=== PATIENT | female | born 1995 | race Asian ===

== ENCOUNTER 2017-01-02 10:09 | Emergency (ER) | payer SELFPAY ==
[2017-01-02 10:10] VITALS: BP 131/65; PULSE 74; RESP 15; TEMP 99.5; O2SAT 95
--- NOTE | 2017-01-02 10:23 | PD ---
HPI Chief Complaint: Cold / Flu Symptoms Time Seen by Provider: 10:22 Travel History International Travel<30 days: Yes Contact w/Intl Traveler<30days: Yes Name of Country Traveled to: [facility] Traveled to known affect area: Yes History of Present Illness HPI 21 YO female presents to the ED for evaluation of 1 day history of fever, headache and sore throat. Headache described as occipital, rated 7/10, accompanied by mild dizziness. She endorses tender lymphadenopathy. Also complains of one week history of streaky blood in the stool. She denies malaise , vision changes, ear pain, sinus congestion, chest pain, cough, shortness of breath, abdominal pain, nausea, vomiting, diarrhea, dysuria, vaginal discharge, back pain, arthralgias. She did not receive this years flu vaccine. The patient lives in [facility] [place], is here visiting a friend for the last 2 weeks. She states that she's been eating a diet similar to that at home. PFSH Past Medical History Medical History: Denies Significant Hx Social History Alcohol Use: No Tobacco Use: No Substance Use: No Allergies-Medications (Allergen,Severity, Reaction): Coded Allergies: No Known Allergies (Unverified , 01/02/17) Reported Meds & Prescriptions Reported Meds & Active Scripts Active No Active Prescriptions or Reported Medications Review of Systems Except as stated in HPI: all other systems reviewed are Neg Physical Exam Narrative GENERAL: Well-nourished, well-developed, non toxic appearing female in [facility]. SKIN: Focused skin assessment warm/dry. There are 2 insect bites on the left anterior ankle. No signs of infection. HEAD: Normocephalic. Atraumatic. ENT: pearly lowe tympanic membranes bilaterally. Right tonsil 2+, mildly erythematous. No visible exudate. Airway patent. Uvula midline. Streaky blood noted in the nasal discharge. Streaky blood noted on the strep swab. EYES: No scleral icterus. No injection or drainage. PERRLA. EOMI. NECK: Supple, trachea midline. No JVD. + tender anterior cervical lymphadenopathy. CARDIOVASCULAR: Regular rate and rhythm without murmurs, gallops, or rubs. RESPIRATORY: Breath sounds clear and equal bilaterally. No accessory muscle use. GASTROINTESTINAL: Abdomen soft, non-tender, nondistended.No palpable masses. Active bowel sounds. MUSCULOSKELETAL: No cyanosis, or edema. Ambulatory, moves the extremities spontaneously. NEUROLOGICAL: Awake and alert. Cranial nerves II through XII intact. Motor and sensory grossly within normal limits. 5/5 muscle strength in all muscle groups. Normal speech. BACK: Nontender without obvious deformity. No CVA tenderness. Data Data Last Documented VS Vital Signs Date Time Temp Pulse Resp B/P Pulse Ox O2 Delivery O2 Flow Rate FiO2 01/02/17 14:19 97 15 99 01/02/17 11:16 Room Air 01/02/17 10:10 99.5 131/65 Orders Complete Blood Count With Diff (01/02/17 10:35) Comprehensive Metabolic Panel (01/02/17 10:35) Prothrombin Time / Inr (Pt) (01/02/17 10:35) Act Partial Throm Time (Ptt) (01/02/17 10:35) Urinalysis - C+S If Indicated (01/02/17 10:35) Iv Access Insert/Monitor (01/02/17 10:35) Ecg Monitoring (01/02/17 10:35) Oximetry (01/02/17 10:35) Sodium Chlor 0.9% 1000 Ml Inj (Ns 1000 M (01/02/17 10:35) Sodium Chloride 0.9% Flush (Ns Flush) (01/02/17 10:45) Influenzae A/B Antigen (01/02/17 10:35) Group A Rapid Strep Screen (01/02/17 10:35) Ed Urine Pregnancytest Poc (01/02/17 10:35) Acetaminophen (Tylenol) (01/02/17 10:45) Malaria (01/02/17 10:35) Enteric Path (Stool) (01/02/17 10:45) Stool Ova And Parasite Screen (01/02/17 10:45) Ct Brain W/O Iv Contrast(Rout) (01/02/17 10:57) Type And Screen (01/02/17 10:58) Fibrinogen (01/02/17 10:58) Type In Test Nurse Collected (01/02/17 11:12) Sodium Chlor 0.9% 1000 Ml Inj (Ns 1000 M (01/02/17 11:45) Penicillin G Benzathine Inj (Bicillin L- (01/02/17 12:30) Labs Laboratory Tests Test 01/02/17 01/02/17 01/02/17 10:50 11:00 11:15 Urine Color YELLOW Urine Turbidity HAZY Urine pH 5.5 Urine Specific [place] 1.022 Urine Protein TRACE mg/dL Urine Glucose (UA) NEG mg/dL Urine Ketones 80 mg/dL Urine Occult Blood NEG Urine Nitrite NEG Urine Bilirubin NEG Urine Urobilinogen LESS THAN 2.0 MG/DL Urine Leukocyte Esterase SMALL Urine RBC LESS THAN 1 /hpf Urine WBC 2 /hpf Urine Squamous Epithelial 1 /hpf Cells Urine Mucus MANY /lpf Microscopic Urinalysis Comment CULT NOT INDICATED White Blood Count 22.8 TH/MM3 Red Blood Count 4.52 MIL/MM3 Hemoglobin 13.8 GM/DL Hematocrit 41.2 % Mean Corpuscular Volume 91.1 FL Mean Corpuscular Hemoglobin 30.6 PG Mean Corpuscular Hemoglobin 33.6 % Concent Red Cell Distribution Width 12.0 % Platelet Count 269 TH/MM3 Mean Platelet Volume 7.8 FL Neutrophils (%) (Auto) 88.9 % Lymphocytes (%) (Auto) 3.8 % Monocytes (%) (Auto) 6.7 % Eosinophils (%) (Auto) 0.0 % Basophils (%) (Auto) 0.6 % Neutrophils # (Auto) 20.3 TH/MM3 Lymphocytes # (Auto) 0.9 TH/MM3 Monocytes # (Auto) 1.5 TH/MM3 Eosinophils # (Auto) 0.0 TH/MM3 Basophils # (Auto) 0.1 TH/MM3 CBC Comment DIFF FINAL Differential Comment Prothrombin Time 11.4 SEC Prothromb Time International 1.0 RATIO Ratio Activated Partial 29.2 SEC Thromboplast Time Fibrinogen 366 mg/dL Sodium Level 135 MEQ/L Potassium Level 3.5 MEQ/L Chloride Level 102 MEQ/L Carbon Dioxide Level 23.9 MEQ/L Anion Gap 9 MEQ/L Blood Urea Nitrogen 10 MG/DL Creatinine 0.70 MG/DL Estimat Glomerular Filtration 107 ML/MIN Rate Random Glucose 89 MG/DL Calcium Level 9.0 MG/DL Total Bilirubin 1.0 MG/DL Aspartate Amino Transf 18 U/L (AST/SGOT) Alanine Aminotransferase 15 U/L (ALT/SGPT) Alkaline Phosphatase 49 U/L Total Protein 7.9 GM/DL Albumin 4.1 GM/DL Blood Type O POSITIVE Antibody Screen NEGATIVE Blood Bank Comment [facility] Medical Decision Making Medical Screen Exam Complete: Yes Emergency Medical Condition: Yes Differential Diagnosis Pharyngitis versus strep pharyngitis versus influenza versus malaria versus dengue versus chikungunya versus other hemorrhagic fever versus enteric pathogen versus other Narrative Course 21 YO female presents to the ED for evaluation of 1 day history of fever, headache and sore throat. Headache described as occipital, rated 7/10, accompanied by mild dizziness. She endorses tender cervical lymphadenopathy. Also complains of one week history of streaky blood in the stool. She did not receive this years flu vaccine. The patient lives in [place], visiting a friend x 2 weeks. Endorses diet similar to that at home. Vitals reviewed. Physical exam reveals a well-appearing female in no acute distress. No focal neuro deficits. Right tonsil 1+ without visible exudates. Chest CTA B. Abdomen soft, nontender. Rectal exam guaiac positive. Streaky blood noted in the fluids collected from posterior oropharynx and nasal mucosa. Patient received 2 L normal saline bolus, 650 mg Tylenol by mouth. Headache resolved on recheck. Rapid strep positive. Leukocytosis of 22.8 with a left shift. Patient was administered 1.2 million units of penicillin G. Malarial smear initially negative. Final results pending. Dengue IGM sent out and pending. Stool studies ordered but the patient was unable to provide a stool sample in the ED. I discussed the results of the workup with the patient as well as the pending tests. She was given strict instructions to return should her symptoms worsen. She provided contact information both in the [place] and [facility]. She indicated understanding of the discharge instructions and is agreeable to the care plan. She is stable and discharged home. Contacts: [place] contact, family friend: Hortencia Chakraborty [phone] [place] contact, mother: Lucia Lebron [phone] ( I double checked this number, patient states this number is correct and complete.) [facility] Point of Care Internal Pos. & Neg. Controls: Passed Fecal Specimen Occult Blood: Positive Diagnosis Primary Impression: Strep pharyngitis Additional Impression: GI (gastrointestinal bleed) Qualified Code: K92.2 - Gastrointestinal hemorrhage, unspecified gastrointestinal hemorrhage type Referrals: Primary Care Physician Patient Instructions: General Instructions, Strep Throat (ED) Additional Instructions: Rest, hydrate. Alternating Motrin and Tylenol every 4-6 hours as needed for continued fever and headaches. Replace toothbrush at the end of this illness. Follow-up with the primary care provider this week. Return to the ED for worsening of symptoms or any urgent or emergent medical condition. Scripts No Active Prescriptions or Reported Meds Disposition: 01 DISCHARGE HOME Condition: Stable Kalee Avery Jan 02, 2017 10:23
[2017-01-02] MEDS ORDERED: SODIUM CHLOR 0.9% 1000 ML INJ 1,000 ML IV SCH (10:35)
[2017-01-02] MEDS ORDERED: ACETAMINOPHEN 500 MG CPLT PO ONE (10:45)
[2017-01-02] MEDS ORDERED: SODIUM CHLORIDE 0.9% FLUSH 10 ML FLUSH IV FLUSH PRN (10:45)
[2017-01-02 11:15] VITALS: PULSE 105; RESP 15
[2017-01-02 11:16] VITALS: PULSE 106; RESP 15; O2SAT 99
[2017-01-02 11:30] LABS: AUTOMATED NEUTROPHIL # 20.3 TH/MM3 (1.8-7.7); BASOPHIL # 0.1 TH/MM3 (0-0.2); BASOPHIL % 0.6 % (0.0-2.0); HEMATOCRIT 41.2 % (35.0-46.0); HEMO FLAGS DIFF FINAL; LYMPH % 3.8 % (9.0-44.0); LYMPHOCYTE # 0.9 TH/MM3 (1.0-4.8); MEAN CELL VOLUME 91.1 FL (80.0-100.0); MEAN CORPUSCULAR HEMOGLOBIN 30.6 PG (27.0-34.0); MEAN CORPUSCULAR HGB CONC 33.6 % (32.0-36.0); MONO % 6.7 % (0.0-8.0); NEUT % 88.9 % (16.0-70.0); PLATELET COUNT 269 TH/MM3 (150-450); RED BLOOD COUNT 4.52 MIL/MM3 (4.00-5.30); WHITE BLOOD COUNT 22.8 TH/MM3 (4.0-11.0)
[2017-01-02 11:40] LABS: APTT (PATIENT) 29.2 SEC (24.3-30.1); PROTHROMBIN TIME - PATIENT 11.4 SEC (9.8-11.6)
[2017-01-02] MEDS ORDERED: SODIUM CHLOR 0.9% 1000 ML INJ 1,000 ML IV ONE (11:45)
[2017-01-02 11:48] VITALS: PULSE 100
[2017-01-02 11:50] VITALS: RESP 14
[2017-01-02 11:58] LABS: ANION GAP 9 MEQ/L (5-15); AST (GOT) 18 U/L (16-38); BICARBONATE 23.9 MEQ/L (21.0-32.0); BLOOD UREA NITROGEN 10 MG/DL (7-18); CHLORIDE 102 MEQ/L (98-107); GLOMERULAR FILTRATION RATE 107 ML/MIN (>89); POTASSIUM 3.5 MEQ/L (3.5-5.1); SODIUM (NA) 135 MEQ/L (136-145)
[2017-01-02 11:59] LABS: ALT (GPT) 15 U/L (9-42)
[2017-01-02 12:01] LABS: ALKALINE PHOSPHATASE 49 U/L (45-117)
[2017-01-02 12:16] LABS: BLOOD, URINE NEG (NEG); COMMENT (UR) CULT NOT INDICATED; CULTURE IF INDICATED CULT NOT INDICATED; GLUCOSE,URINE NEG (NEG); KETONE, URINE 80 mg/dL (NEG); MUCUS URINE MANY /lpf (OCC); NITRITE,URINE NEG (NEG); PH, URINE 5.5 (5.0-8.5); SQUAMOUS EPITHELIAL CELL URINE 1 /hpf (0-5); URINE COLOR YELLOW (YELLW/STRAW)
[2017-01-02] MEDS ORDERED: PENICILLIN G BENZATHINE 1,200,000 UNITS/2 ML SYRINGE IM ONE (12:30)
--- NOTE | 2017-01-02 12:32 | RADRPT ---
EXAM DATE/TIME: 01/02/2017 11:51 [place] COMPARISON: No previous studies available for comparison. INDICATIONS : Cephalgia today. RADIATION DOSE: 56.35 CTDIvol (mGy) MEDICAL HISTORY : None SURGICAL HISTORY : None. ENCOUNTER: Initial ACUITY: 1 day PAIN SCALE: 7/10 LOCATION: Bilateral head TECHNIQUE: Multiple contiguous axial images were obtained of the head. Using automated exposure control and adj ustment of the mA and/or kV according to patient size, radiation dose was kept as low as reasonably a chievable to obtain optimal diagnostic quality images. DICOM format image data is available electro nically for review and comparison. FINDINGS: CEREBRUM: The ventricles are normal for age. No evidence of midline shift, mass lesion, hemorrhage or acute in farction. No extra-axial fluid collections are seen. POSTERIOR FOSSA: The cerebellum and brainstem are intact. The 4th ventricle is midline. The cerebellopontine angle i s unremarkable. EXTRACRANIAL: The visualized portion of the orbits is intact. SKULL: The calvaria is intact. No evidence of skull fracture. CONCLUSION: Normal examination for a patient of this age. Dayne Ma MD on January 02, 2017 at 12:29 Board Certified Radiologist. This report was verified electronically.
--- NOTE | 2017-01-02 13:24 | PD ---
Data Data Last Documented VS Vital Signs Date Time Temp Pulse Resp B/P Pulse Ox O2 Delivery O2 Flow Rate FiO2 01/02/17 11:50 14 01/02/17 11:48 100 01/02/17 11:16 99 Room Air 01/02/17 10:10 99.5 131/65 Orders Complete Blood Count With Diff (01/02/17 10:35) Comprehensive Metabolic Panel (01/02/17 10:35) Prothrombin Time / Inr (Pt) (01/02/17 10:35) Act Partial Throm Time (Ptt) (01/02/17 10:35) Urinalysis - C+S If Indicated (01/02/17 10:35) Iv Access Insert/Monitor (01/02/17 10:35) Ecg Monitoring (01/02/17 10:35) Oximetry (01/02/17 10:35) Sodium Chlor 0.9% 1000 Ml Inj (Ns 1000 M (01/02/17 10:35) Sodium Chloride 0.9% Flush (Ns Flush) (01/02/17 10:45) Influenzae A/B Antigen (01/02/17 10:35) Group A Rapid Strep Screen (01/02/17 10:35) Ed Urine Pregnancytest Poc (01/02/17 10:35) Acetaminophen (Tylenol) (01/02/17 10:45) Malaria (01/02/17 10:35) Enteric Path (Stool) (01/02/17 10:45) Stool Ova And Parasite Screen (01/02/17 10:45) Ct Brain W/O Iv Contrast(Rout) (01/02/17 10:57) Type And Screen (01/02/17 10:58) Fibrinogen (01/02/17 10:58) Type In Test Nurse Collected (01/02/17 11:12) Sodium Chlor 0.9% 1000 Ml Inj (Ns 1000 M (01/02/17 11:45) Penicillin G Benzathine Inj (Bicillin L- (01/02/17 12:30) Labs Laboratory Tests Test 01/02/17 01/02/17 01/02/17 10:50 11:00 11:15 Urine Color YELLOW Urine Turbidity HAZY Urine pH 5.5 Urine Specific [place] 1.022 Urine Protein TRACE mg/dL Urine Glucose (UA) NEG mg/dL Urine Ketones 80 mg/dL Urine Occult Blood NEG Urine Nitrite NEG Urine Bilirubin NEG Urine Urobilinogen LESS THAN 2.0 MG/DL Urine Leukocyte Esterase SMALL Urine RBC LESS THAN 1 /hpf Urine WBC 2 /hpf Urine Squamous Epithelial 1 /hpf Cells Urine Mucus MANY /lpf Microscopic Urinalysis Comment CULT NOT INDICATED White Blood Count 22.8 TH/MM3 Red Blood Count 4.52 MIL/MM3 Hemoglobin 13.8 GM/DL Hematocrit 41.2 % Mean Corpuscular Volume 91.1 FL Mean Corpuscular Hemoglobin 30.6 PG Mean Corpuscular Hemoglobin 33.6 % Concent Red Cell Distribution Width 12.0 % Platelet Count 269 TH/MM3 Mean Platelet Volume 7.8 FL Neutrophils (%) (Auto) 88.9 % Lymphocytes (%) (Auto) 3.8 % Monocytes (%) (Auto) 6.7 % Eosinophils (%) (Auto) 0.0 % Basophils (%) (Auto) 0.6 % Neutrophils # (Auto) 20.3 TH/MM3 Lymphocytes # (Auto) 0.9 TH/MM3 Monocytes # (Auto) 1.5 TH/MM3 Eosinophils # (Auto) 0.0 TH/MM3 Basophils # (Auto) 0.1 TH/MM3 CBC Comment DIFF FINAL Differential Comment Prothrombin Time 11.4 SEC Prothromb Time International 1.0 RATIO Ratio Activated Partial 29.2 SEC Thromboplast Time Fibrinogen 366 mg/dL Sodium Level 135 MEQ/L Potassium Level 3.5 MEQ/L Chloride Level 102 MEQ/L Carbon Dioxide Level 23.9 MEQ/L Anion Gap 9 MEQ/L Blood Urea Nitrogen 10 MG/DL Creatinine 0.70 MG/DL Estimat Glomerular Filtration 107 ML/MIN Rate Random Glucose 89 MG/DL Calcium Level 9.0 MG/DL Total Bilirubin 1.0 MG/DL Aspartate Amino Transf 18 U/L (AST/SGOT) Alanine Aminotransferase 15 U/L (ALT/SGPT) Alkaline Phosphatase 49 U/L Total Protein 7.9 GM/DL Albumin 4.1 GM/DL Blood Type O POSITIVE Antibody Screen NEGATIVE Blood Bank Comment MDM Supervised Visit with PRATIMA: Yes Narrative Course I, Dr. Yadav, have reviewed the advance practice practioner's documentation and am in agreement, met with the patient face to face, made the diagnosis, and the medical decision making was done by me. *My assessment and Findings: 21-year-old female with complaints of one week of bloody streaks, mucous in the stool with myalgias/arthralgias and one day of sore throat, headache and subjective fever. Patient is here from [facility], visiting a friend for the last 2 weeks. On exam she does have pharyngeal erythema with some palatal petechiae slight amount of blood in the posterior pharynx. There is no appreciable petechia, purpura or oral lesions. Her abdominal examination is benign. There are 2 small bug bites on the lower extremity and she was guaiac positive per PA. Symptoms are concerning for strep , influenza, dengue, malaria, chikungunya, or other mosquito born illness. Overall patient is well-appearing however and is afebrile here. Her laboratory workup shows positive strep pharyngitis and leukocytosis but no evidence of bandemia. She was treated with penicillin G IM. The remainder of her laboratory testing is unremarkable. Thin smear for malaria was negative. Thick smear remains pending as does her dengue IgM which is a send out test. Patient will be discharged home with strict return precautions. Diagnosis Primary Impression: Strep pharyngitis Additional Impression: GI (gastrointestinal bleed) Qualified Code: K92.2 - Gastrointestinal hemorrhage, unspecified gastrointestinal hemorrhage type Referrals: Primary Care Physician Patient Instructions: General Instructions, Strep Throat (ED) Additional Instruction: Rest, hydrate. Push fluids such as sports drinks, Pedialyte, popsicles, clear broth. Alternating Motrin and Tylenol every 4-6 hours as needed for continued fever and headaches. Replace toothbrush at the end of this illness. Follow-up with the primary care provider this week. Return to the ED for worsening of symptoms or any urgent or emergent medical condition. Scripts No Active Prescriptions or Reported Meds Disposition: 01 DISCHARGE HOME Condition: Stable Mckenna Yadav MD Jan 02, 2017 13:24
== END 2017-01-02 14:19 | disposition home or self-care (01) ==
LOC: NEPD 10:09
DX: J02.0 Streptococcal pharyngitis (principal); B95.0 Streptococcus, group A, as the cause of diseases classified elsewhere; K92.2 Gastrointestinal hemorrhage, unspecified
CPT/HCPCS: 70450; 80053; 81001; 84703; 85025; 85384; 85610; 85730; 86850; 86900; 86901; 87015; 87207; 87804; 87880; 96360; 96372; 99284; J0561; J7030